=== PATIENT | male | born 1995 | race Caucasian/White ===

== ENCOUNTER 2020-03-29 19:18 | Emergency (ER) | payer OTHER ==
[2020-03-29] MEDS ORDERED: NORCO 325 MG-51 TA1 PO (21:42)
[2020-03-29 21:48] VITALS: BP 131/86
== END 2020-03-29 21:48 | disposition home or self-care (01) ==
LOC: ED 19:18
DX: T54.3X1A Toxic effect of corrosive alkalis and alkali-like substances, accidental (unintentional), initial encounter (principal); T23.451A Corrosion of unspecified degree of right palm, initial encounter; T32.0 Corrosions involving less than 10% of body surface; Y92.69 Other specified industrial and construction area as the place of occurrence of the external cause
CPT/HCPCS: J1885; J3010